=== PATIENT | female | born 1970 | race African-American/Black ===

== ENCOUNTER 2022-03-28 23:05 | Inpatient (IN) | payer OTHER ==
[2022-03-28 23:18] VITALS: BMI 29.5
[2022-03-29] MEDS ORDERED: ACETAMINOPHEN 1000 MG/100 ML BAG IVPB ONE ×2 (00:45→13:09)
[2022-03-29] MEDS ORDERED: hydrALAZINE HCL 20 MG/ML VIAL IVPUSH ONE (00:48)
[2022-03-29] MEDS ORDERED: ONDANSETRON 4 MG/2 ML VIAL IVPUSH ONE (00:48)
[2022-03-29] MEDS ORDERED: hydrALAZINE HCL 20 MG/ML VIAL ONE (00:54)
[2022-03-29] MEDS ORDERED: ONDANSETRON 4 MG/2 ML VIAL ONE (00:55)
[2022-03-29 01:25] LABS: BASO % 0.9 % (0-2.0); EOS % 3.2 % (0-4.5); HEMATOCRIT 39.3 % (32.4-45.2); LYMPH % 44.7 % (8-40); MCH 27.5 pg (25.7-33.7); MCHC 33.2 g/dl (32.0-36.0); MEAN PLT VOLUME 9.1 fl (7.5-11.1); MONO % 7.7 % (3.8-10.2); NEUT % 43.5 % (42.8-82.8); PLATELET COUNT 228 10^3/uL (134-434); RBC 4.73 M/mm3 (3.60-5.2); RDW 14.3 % (11.6-15.6); WHITE BLOOD COUNT 5.2 K/mm3 (4.0-10.0)
[2022-03-29 01:33] LABS: INR 1.08 (0.83-1.09); PROTHROMBIN TIME (PATIENT) 12.4 SEC (9.7-13.0)
[2022-03-29 01:36] LABS: ACTIVATED PTT 32.5 SECONDS (25.2-36.5)
[2022-03-29 01:46] LABS: CHLORIDE 109 mmol/L (98-107); SODIUM 144 mmol/L (136-145)
[2022-03-29 01:48] LABS: CALCIUM 8.7 mg/dL (8.5-10.1)
[2022-03-29 01:49] LABS: ANION GAP 9 MMOL/L (8-16); BLOOD UREA NITROGEN 11.6 mg/dL (7-18); CO2 26 mmol/L (21-32); GLUCOSE,RANDOM 96 mg/dL (74-106)
[2022-03-29 01:52] LABS: CREATININE 0.9 mg/dL (0.55-1.3); SGOT/AST 18 U/L (15-37); SGPT/ALT 19 U/L (13-61)
[2022-03-29 01:53] LABS: BILIRUBIN,TOTAL 0.3 mg/dL (0.2-1)
[2022-03-29 01:55] LABS: ALK PHOS 76 U/L (45-117)
[2022-03-29] MEDS ORDERED: IBUPROFEN 400 MG TABLET (FP) PO ONE ×2 (02:22→02:28)
[2022-03-29 02:41] LABS: PH,URINE 6.5 (5.0-8.0); URINE APPEARANCE CLEAR; URINE BILIRUBIN NEGATIVE (NEGATIVE); URINE COLOR YELLOW; URINE GLUCOSE (UA) NEGATIVE (NEGATIVE); URINE KETONE NEGATIVE (NEGATIVE); URINE LEUK ESTERASE NEGATIVE (NEGATIVE); URINE NITRITE NEGATIVE (NEGATIVE); URINE PROTEIN TRACE (NEGATIVE); URINE UROBILINOGEN 0.2 mg/dL (0.2-1.0)
[2022-03-29 03:33] LABS: N-TERMINAL BNP 783.5 pg/ml (5-125)
[2022-03-29] MEDS ORDERED: ASPIRIN 325 MG ENTERIC COATED TABLET (FP) PO ONE (05:06)
[2022-03-29] MEDS ORDERED: FUROSEMIDE 40 MG/4 ML INJECTABLE VIAL IVPUSH ONE ×2 (05:07→05:08)
[2022-03-29] MEDS ORDERED: ASPIRIN 325 MG ENTERIC COATED TABLET (FP) ONE (05:30)
[2022-03-29] MEDS ORDERED: FUROSEMIDE 40 MG/4 ML INJECTABLE VIAL ONE ×2 (05:30→10:34)
[2022-03-29] MEDS ORDERED: NITROGLYCERIN 2% OINTMENT - 1GM PACKET TD ONE ×2 (07:24→08:01)
[2022-03-29] MEDS ORDERED: LISINOPRIL 10 MG TABLET PO ONE (07:25)
[2022-03-29] MEDS ORDERED: LISINOPRIL 10 MG TABLET ONE (08:02)
[2022-03-29] MEDS ORDERED: amLODIPine BESYLATE 5 MG TABLET (FP) PO SCH (10:00)
[2022-03-29] MEDS ORDERED: metoPROLOL SUCCINATE 25 MG TAB.SR.24H (FP) PO ONE (10:33)
[2022-03-29] MEDS ORDERED: ENOXAPARIN NA (PORCINE) 40 MG/0.4 ML DISP.SYRIN SQ ONE (10:34)
[2022-03-29] MEDS: FUROSEMIDE 40 MG/4 ML INJECTABLE VIAL IVPUSH SCH (10:48)
[2022-03-29] MEDS: metoPROLOL SUCCINATE 25 MG TAB.SR.24H (FP) PO SCH (10:48)
[2022-03-29] MEDS: ENOXAPARIN NA (PORCINE) 40 MG/0.4 ML DISP.SYRIN SQ SCH (10:48)
[2022-03-29] MEDS ORDERED: ACETAMINOPHEN INJECTION 100 ML IVPB ONE (13:33)
[2022-03-29] MEDS ORDERED: oxyCODONE HCL 5 MG TABLET PO PRN (14:37)
[2022-03-29] MEDS ORDERED: oxyCODONE HCL 5 MG TABLET ONE (15:08)
[2022-03-30] MEDS ORDERED: amLODIPine BESYLATE 5 MG TABLET (FP) PO SCH ×2 (10:00→14:44)
[2022-03-30 10:34] LABS: HEMATOCRIT 39.9 % (32.4-45.2); HEMOGLOBIN 13.4 GM/dL (10.7-15.3); MCH 27.8 pg (25.7-33.7); MCHC 33.6 g/dl (32.0-36.0); MEAN CELL VOLUME 82.7 fl (80-96); RBC 4.83 M/mm3 (3.60-5.2); WHITE BLOOD COUNT 4.3 K/mm3 (4.0-10.0)
[2022-03-30 10:35] LABS: BASO % 0.9 % (0-2.0); EOS % 3.5 % (0-4.5); LYMPH % 37.7 % (8-40); MONO % 7.6 % (3.8-10.2); NEUT % 50.3 % (42.8-82.8); PLATELET COUNT 255 10^3/uL (134-434); RDW 14.3 % (11.6-15.6)
[2022-03-30] MEDS: FUROSEMIDE 40 MG/4 ML INJECTABLE VIAL IVPUSH SCH (10:43)
[2022-03-30] MEDS: ENOXAPARIN NA (PORCINE) 40 MG/0.4 ML DISP.SYRIN SQ SCH (10:43)
[2022-03-30] MEDS: metoPROLOL SUCCINATE 25 MG TAB.SR.24H (FP) PO SCH (10:44)
[2022-03-30] MEDS: LISINOPRIL 10 MG TABLET PO SCH (10:49)
[2022-03-30 10:57] LABS: ALBUMIN 3.8 g/dl (3.4-5.0); BLOOD UREA NITROGEN 12.6 mg/dL (7-18); CALCIUM 9.3 mg/dL (8.5-10.1); MAGNESIUM 2.1 mg/dL (1.8-2.4)
[2022-03-30 11:00] LABS: PHOSPHOROUS 3.4 mg/dL (2.5-4.9)
[2022-03-30 11:01] LABS: CREATININE 1.1 mg/dL (0.55-1.3)
[2022-03-30 11:02] LABS: BILIRUBIN,TOTAL 0.5 mg/dL (0.2-1); TOT PROT 7.8 g/dl (6.4-8.2)
[2022-03-31 06:28] VITALS: PULSE 69
[2022-03-31 10:24] LABS: BASO % 1.1 % (0-2.0); EOS % 3.8 % (0-4.5); HEMATOCRIT 39.9 % (32.4-45.2); HEMOGLOBIN 13.2 GM/dL (10.7-15.3); LYMPH % 41.6 % (8-40); MCH 27.3 pg (25.7-33.7); MEAN CELL VOLUME 82.6 fl (80-96); MEAN PLT VOLUME 8.9 fl (7.5-11.1); MONO % 7.8 % (3.8-10.2); NEUT % 45.7 % (42.8-82.8); PLATELET COUNT 229 10^3/uL (134-434); RBC 4.83 M/mm3 (3.60-5.2); RDW 14.5 % (11.6-15.6); WHITE BLOOD COUNT 3.8 K/mm3 (4.0-10.0)
[2022-03-31 10:41] VITALS: BP 162/86; RESP 20; TEMP 98
[2022-03-31] MEDS: metoPROLOL SUCCINATE 25 MG TAB.SR.24H (FP) PO SCH (10:41)
[2022-03-31] MEDS: LISINOPRIL 10 MG TABLET PO SCH (10:41)
[2022-03-31] MEDS: FUROSEMIDE 40 MG/4 ML INJECTABLE VIAL IVPUSH SCH (10:43)
[2022-03-31] MEDS: ENOXAPARIN NA (PORCINE) 40 MG/0.4 ML DISP.SYRIN SQ SCH (10:43)
[2022-03-31 11:00] LABS: ALBUMIN 3.7 g/dl (3.4-5.0); BLOOD UREA NITROGEN 13.8 mg/dL (7-18); CALCIUM 9.2 mg/dL (8.5-10.1); MAGNESIUM 2.1 mg/dL (1.8-2.4)
[2022-03-31 11:01] LABS: BILIRUBIN,TOTAL 0.4 mg/dL (0.2-1); TOT PROT 7.6 g/dl (6.4-8.2)
[2022-03-31 11:02] LABS: CREATININE 0.9 mg/dL (0.55-1.3)
[2022-03-31 11:03] LABS: PHOSPHOROUS 3.7 mg/dL (2.5-4.9)
== END 2022-03-31 13:48 | disposition home or self-care (01) | DRG 194 ==
LOC: JER 23:05 → JERBED 03-29 08:17 → J6W 03-29 17:56
PROVIDERS: ADMIT Internal Medicine
DX: I11.0 Hypertensive heart disease with heart failure (principal); I50.31 Acute diastolic (congestive) heart failure; U07.1 COVID-19; E66.9 Obesity, unspecified; Z68.29 Body mass index [BMI] 29.0-29.9, adult; Z91.14 Patient's other noncompliance with medication regimen; M25.562 Pain in left knee; M17.12 Unilateral primary osteoarthritis, left knee; E78.5 Hyperlipidemia, unspecified; I16.9 Hypertensive crisis, unspecified; I24.8 Other forms of acute ischemic heart disease
CPT/HCPCS: 0241U-QW; 36415; 71045-TC-FY; 73562-TC-LT-FY; 80053; 81003; 83735; 83880; 84100; 84439; 84443; 84484; 84703; 85025; 85610; 85730; 93005; 93010; 93306-TC; 93971-TC; 97116-GP; 97162-GP; 99291; 99292